=== PATIENT | female | born 1980 | race African-American/Black ===

== ENCOUNTER 2016-06-12 08:09 | Day surgery (SDC) | payer MEDICARE, OTHER ==
[~2016-06-12] VITALS: Ht 154.9 cm; Wt 73.0 kg
[~2016-06-12 08:09] MED LIST: CATAPRES0.2 MG PO; CELEXA10 MG PO; FUROSEMIDE40 MG PO; HYDROCODON-ACE1 EAC7 PO; LOTENSIN20 MG PO; METOPROLOL TART50 MG PO; NORMODYNE / TR300 MG PO; NORVASC5 MG PO
[2016-06-12 09:22] LABS: BASOPHILS 0.2 % (0.0-2.0); EOSINOPHILS 1.8 % (0-7); HEMATOCRIT 33.7 % (36.0-48.0); HEMOGLOBIN 11.1 g/dL (12-16); IMMATURE GRANULOCYTES 0.2 % (0-5); LYMPHOCYTES 28.7 % (15-50); MCH 29.8 pg (26.0-34.0); MCHC 32.9 g/dL (31.0-37.0); MCV 90.3 fL (80.0-100.0); MONOCYTES 7.2 % (2-11); NEUTROPHILS 61.9 % (40-80); RBC 3.73 10x6/uL (4.00-5.40); RDW 13.1 % (11.5-14.5); WBC 5.4 10x3/uL (4.8-10.8)
[2016-06-12 09:29] LABS: PLATELET COUNT 193 10x3/uL (130-400)
[2016-06-12 09:42] LABS: ANION GAP 13.1 mmol/L (8-16); CALCIUM 8.1 mg/dL (8.5-10.1); CREATININE - SERUM 6.3 mg/dL (0.6-1.3); POTASSIUM - SERUM 4.1 mmol/L (3.5-5.1)
[2016-06-12 10:09] LABS: APTT 28.5 SECONDS (22.8-39.4); INR 0.99 (0.85-1.17); PROTIME 12.9 SECONDS (11.6-15.0)
[2016-06-12 10:59] VITALS: BP 117/74; Ht 154.9 cm; Wt 73.0 kg
--- NOTE | 2016-06-12 15:32 | NUR ---
DR BLANCO STATED "DO NOT SEND PD CATH FOR PATHOLOGY OR CULTURES, ANGELICLEY.
[2016-06-12] MEDS ORDERED: HYDROCODON-ACE1 EAC7 PO (16:19)
--- NOTE | 2016-06-12 17:33 | NUR ---
VOMTING CLEAR LIG, STATED FELT BETTER
--- NOTE | 2016-06-12 17:33 | NUR ---
1600 IV DC WITH CATHER TIP INTACT
--- NOTE | 2016-06-12 17:34 | NUR ---
STATED SHE NEED TO REST , THAT SHE WOULD TRY TO GET UP IN A FEW MINUTES
--- NOTE | 2016-06-16 14:04 | OP ---
PATIENT NAME: ELI GRANGER MEDICAL RECORD: [id number] :78 LOCATION:[facility] ADMISSION DATE: SURGEON: EDUARD BLANCO MD DATE OF OPERATION: 06/12/2016 PREOPERATIVE DIAGNOSES: Tender incarcerated periumbilical hernia and end-stage renal disease with a peritoneal dialysis catheter in place, which the patient finds inconvenience and wants removed. She is presently dialyzing with an arteriovenous fistula. POSTOPERATIVE DIAGNOSES: End-stage renal disease with a peritoneal dialysis catheter in place, which the patient finds inconvenience and wants removed. She is presently dialyzing with an arteriovenous fistula. The umbilical hernia proved not to be a hernia, but a cyst about 1 cm x 1 cm x 1 cm, a cyst filled with clear non-foul smelling fluid. The wall was whitish and there were no excrescences on the inside and outwardly, there was minimal surrounding inflammation and no evidence of any communication between the cyst and the peritoneal cavity or urachus. OPERATION PERFORMED: Removal of periumbilical mass followed by removal of peritoneal dialysis catheter. SURGEON: Eduard Blanco M.D. ANESTHESIA: General endotracheal per [employer]. REFERRING PHYSICIAN: Seth Spivey M.D. PREOPERATIVE NOTE: Ms. Granger is a young 35-year-old -[place] female with end-stage renal disease, who has dialyzed successfully with a peritoneal dialysis catheter, but finds it inconvenient and wants to have it removed. That catheter is in the left upper quadrant of her abdomen and I plan to remove that today. She also has a tender nodule just beneath the umbilicus thought to represent a hernia and she is to have that explored and repaired today as well. DESCRIPTION OF THE PROCEDURE: Under anesthesia in supine position, the patient was prepped and draped in a sterile manner. I first approached the periumbilical lesion making a transverse curved incision beneath the umbilicus and going down through the subcutaneous tissue to expose the lump, which I soon came to find was resting on top of the fascia, but appeared to have no connections with the fascia or the preperitoneal space. This was a cyst about 1 cm x 1 cm x 1 cm. It was easily dissected from the surrounding fatty tissues with electrocautery. I opened the lesion and found it contained clear fluid without odor. The inner surface of the cyst was whitish and smooth without excrescences. The entire cyst was then sent to pathology for histologic study. The wound was then irrigated with saline and infiltrated with 0.25% Marcaine with epinephrine and then closed with interrupted inverted 3-0 Vicryl and a running intracuticular 4-0 Monocryl and Dermabond glue. It was dressed with Maxorb Ag and Tegaderm to provide isolation of this wound from the potentially infected catheter tract. I then placed the catheter on some tension and made an oblique incision from the exit site directed upwards towards the xiphoid. This incision was actually only about an inch and a half in total length or less actually. The incision was carried down to the catheter with electrocautery and first, the more superficial and lastly, the deeper Dacron felt cuff, which was embedded in the rectus sheath was removed. The entire catheter was then taken OPERATIVE REPORT [id number] ELI GRANGER out and discarded. It was not sent for any type of pathology or other documentation. The fascial defect was closed with 2 interrupted [id number] 0 Vicryl sutures. The wound was irrigated and infiltrated with Marcaine and closed with interrupted inverted 3-0 Vicryl and a few widely spaced interrupted simple 3-0 Vicryl skin sutures. That incision was dressed with a piece of Maxorb Ag covered by 4 x 4 and then a Medipore dressing. This incision was dressed in this manner to promote any drainage, which might accumulate. The patient was then awakened and extubated and taken to the recovery room in stable condition. Blood loss during the procedure was trivial and was unreplaced and all sponges, instruments, and needles were accounted for. No drain was used and the surgical specimen consisted of the periumbilical cyst. PLAN: The patient will be discharged from the outpatient department today with a prescription for 15 Blanca 5/325 to take 1 p.o. q.4 hours p.r.n. pain and an appointment to return to see me in my office for her dressing change early next week. TRANSINT:[id number] Voice Confirmation ID: [id number] DOCUMENT ID: [id number] EDUARD BLANCO MD at 1404 CC: SETH SPIVEY MD [id number] DICTATION DATE: 06/12/16 1636 DIE TRIMMER: 06/13/16 0043 [facility] 06/12/16 [facility] [address] [place] [address]
== END 2016-06-12 18:15 | disposition home or self-care (01) ==
LOC: D.OPS 08:09
PROVIDERS: Anesthesiology
DX: Z49.02 Encounter for fitting and adjustment of peritoneal dialysis catheter (principal); L72.0 Epidermal cyst

== ENCOUNTER → 2016-12-21 13:31 | Outpatient (CLI) | payer MEDICARE, OTHER ==
[2016-06-12 10:59] VITALS: BMI 30.5
== END | disposition home or self-care (01) ==
LOC: D.ECHO 13:30
DX: R06.02 Shortness of breath (principal); R55 Syncope and collapse; I10 Essential (primary) hypertension

== ENCOUNTER 2017-10-29 09:08 | Day surgery (SDC) | payer MEDICARE ==
[~2017-10-29] VITALS: Ht 154.9 cm; Wt 73.5 kg
--- NOTE | ~2017-10-29 | OP ---
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 OPERATION PERFORMED: Open ANDERSON banding of AV fistula, right arm. SURGEON: Eduard Blanco MD ANESTHESIA: General per [facility]. PREOPERATIVE NOTE: Ms. Granger is a 37-year-old -[place] African female from [place], [place], on dialysis with a right brachiocephalic AV fistula, which she has had for about 2 years. It is quite a large fistula with aneurysmal deterioration and it continues to enlarge and the aneurysms expand. Recent angiography by Dr. Norton on 10/18/2017 demonstrated no areas of stenosis and she was actually referred for a flow restriction procedure. PROCEDURE IN DETAIL: Under general anesthesia in supine position, the patient's right arm was prepped and draped in a sterile manner. The fistula was accessed with micropuncture technique and ultrasound guidance, and a 6-Arabic sheath inserted at mid humeral level directed distally and a 0.035 Glidewire was passed across the arterial anastomosis and proximally and up the brachial artery. A glide catheter was passed over that and a selective brachial artery arteriogram performed, which revealed no evidence of embolism or thrombus within the brachial artery proximal or distal to the anastomosis nor evidence of occlusive disease of the distal vessels. I then placed a 4-mm angioplasty balloon in the JA segment, but did not inflate it. I made an incision just above the antecubital space parallel to the fistula and exposed and dissected circumferentially the fistula in the area of the balloon. Two 2-0 Prolene ties were placed around the fistula. The balloon was inflated to its nominal diameter of 4-mm and held inflated while the 2 Prolene ligatures were tied around the fistula over the balloon at about a 1 cm interval. This restricted flow precisely to 4-mm diameter to locations a cm apart. The balloon was deflated and contrast was then injected in the brachial artery anastomosis and flow was seen in the brachial artery distally as well as in the fistula. The fistula was less pulsatile and it was quite apparent that the flow had been diminished. It was my opinion that the flow rate was still adequate to maintain patency and provide satisfactory dialysis access. The catheters and guidewires were removed and hemostasis obtained at that puncture site with a 4-0 Prolene [id number] suture. The incision was approximated with interrupted 3-0 Vicryl and running intracuticular 4-0 Monocryl and Dermabond glue. The site was dressed with Maxorb Ag, Tegaderm, and Cavilon skin prep. Blood loss during the procedure was trivial and unreplaced. All sponges, instruments and needles were accounted for. No drain was used and no surgical specimen was submitted for histopathology. OPERATIVE REPORT [id number] ELI GRANGER The patient awakened from anesthetic was taken to the recovery room in stable condition. I will have her back to see me in my office in about 2 weeks. She will continue her same medications and routine dialysis schedule and activities and call me if there are any problems in the interim. She is given a prescription for [place] for postop pain. TRANSINT:[id number] Voice Confirmation ID: [id number] DOCUMENT ID: [id number] EDUARD BLANCO MD at 1747 CC: [id number] DICTATION DATE: 12/04/17 1015 ADJUNCT WRITING INSTRUCTOR: 12/04/17 1033 [facility] 10/29/17 [id number] [place] [address]
[2017-10-29 09:21] LABS: BASOPHILS 0.3 % (0-2); EOSINOPHILS 1.3 % (0-7); HEMATOCRIT 37.2 % (36.0-48.0); HEMOGLOBIN 12.5 g/dL (12-16); IMMATURE GRANULOCYTES 0.7 % (0-5); LYMPHOCYTES 26.5 % (15-50); MCH 31.9 pg (26.0-34.0); MCHC 33.6 g/dL (31.0-37.0); MCV 94.9 fL (80.0-100.0); MONOCYTES 9.4 % (2-11); NEUTROPHILS 61.8 % (40-80); PLATELET COUNT 157 10x3/uL (130-400); RBC 3.92 10x6/uL (4.00-5.40); RDW 13.4 % (11.5-14.5); WBC 7.7 10x3/uL (4.8-10.8)
[2017-10-29 09:30] LABS: ANION GAP 12.6 mmol/L (8-16); CARBON DIOXIDE 29.2 mmol/L (21.0-32.0); POTASSIUM - SERUM 3.8 mmol/L (3.5-5.1)
[2017-10-29 09:36] LABS: INR 0.92 (0.85-1.17)
[2017-10-29 10:27] LABS: HCG SERUM NEGATIVE (NEGATIVE)
[2017-10-29 10:43] VITALS: BP 181/101; Ht 154.9 cm; Wt 73.5 kg
[2017-10-29] MEDS ORDERED: ULTRAM50 MG PO (13:29)
== END 2017-10-29 16:15 | disposition home or self-care (01) ==
LOC: D.OPS 09:08
PROVIDERS: Anesthesiology; Surgery
DX: T82.898A Other specified complication of vascular prosthetic devices, implants and grafts, initial encounter (principal); N18.6 End stage renal disease; Z99.2 Dependence on renal dialysis; Z01.812 Encounter for preprocedural laboratory examination

== ENCOUNTER 2018-02-26 13:43 | Inpatient (IN) | payer MEDICARE ==
[~2018-02-26] VITALS: Ht 154.9 cm; Wt 70.0 kg
[~2018-02-26 13:43] MED LIST changes: +MONODOX100 MG PO; +ULTRAM50 MG PO
[2018-02-26 14:27] VITALS: BP 168/91; Ht 154.9 cm; Wt 70.0 kg
[2018-02-26 16:21] LABS: BASOPHILS 0.4 % (0-2); EOSINOPHILS 3.3 % (0-7); HEMATOCRIT 26.4 % (36.0-48.0); HEMOGLOBIN 8.6 g/dL (12-16); IMMATURE GRANULOCYTES 0.8 % (0-5); LYMPHOCYTES 18.9 % (15-50); MCH 30.6 pg (26.0-34.0); MCHC 32.6 g/dL (31.0-37.0); MONOCYTES 10.6 % (2-11); PLATELET COUNT 150 10x3/uL (130-400); RBC 2.81 10x6/uL (4.00-5.40); RDW 13.7 % (11.5-14.5); WBC 7.6 10x3/uL (4.8-10.8)
[2018-02-26 16:27] VITALS: BP 144/88
[2018-02-26 16:39] LABS: ALBUMIN 3.1 g/dL (3.4-5.0); ANION GAP 9.6 mmol/L (8-16); BILIRUBIN - TOTAL 0.49 mg/dL (0.2-1.3); CALCIUM 8.4 mg/dL (8.5-10.1); CARBON DIOXIDE 32.1 mmol/L (21.0-32.0); CREATININE - SERUM 4.5 mg/dL (0.6-1.3); POTASSIUM - SERUM 3.7 mmol/L (3.5-5.1)
[2018-02-26 21:08] VITALS: BP 153/91
[2018-02-27 05:03] VITALS: BP 160/84
[2018-02-27 05:37] LABS: BASOPHILS 0.3 % (0-2); EOSINOPHILS 3.6 % (0-7); HEMATOCRIT 25.3 % (36.0-48.0); HEMOGLOBIN 8.3 g/dL (12-16); IMMATURE GRANULOCYTES 0.7 % (0-5); LYMPHOCYTES 27.6 % (15-50); MCHC 32.8 g/dL (31.0-37.0); MCV 94.4 fL (80.0-100.0); MEAN PLATELET VOLUME 9.7 fL (7.4-10.4); MONOCYTES 7.2 % (2-11); NEUTROPHILS 60.6 % (40-80); PLATELET COUNT 138 10x3/uL (130-400); RBC 2.68 10x6/uL (4.00-5.40)
[2018-02-27 05:53] LABS: APTT 25.1 SECONDS (22.8-39.4); INR 1.08 (0.85-1.17); PROTIME 13.5 SECONDS (11.6-15.0)
[2018-02-27 06:10] LABS: ALBUMIN 2.8 g/dL (3.4-5.0); ANION GAP 13.8 mmol/L (8-16); BILIRUBIN - TOTAL 0.48 mg/dL (0.2-1.3); CALCIUM 8.3 mg/dL (8.5-10.1); CARBON DIOXIDE 25.1 mmol/L (21.0-32.0); POTASSIUM - SERUM 3.9 mmol/L (3.5-5.1); PROTEIN - SERUM 6.4 g/dL (6.4-8.2)
[2018-02-27 06:11] LABS: CREATININE - SERUM 6.4 mg/dL (0.6-1.3)
[2018-02-27 08:43] VITALS: BP 134/87
[2018-02-27 12:38] VITALS: BP 133/81
[2018-02-27] MEDS ORDERED: PEPCID40 MG PO (12:50)
== END 2018-02-27 16:00 | disposition home or self-care (01) | DRG 377 ==
LOC: D.MS 13:43
PROVIDERS: Family Medicine; Internal Medicine Gastroenterology
PROC: 0DB68ZX Excision of Stomach, Via Natural or Artificial Opening Endoscopic, Diagnostic (ICD-10-PCS; principal; 2018-02-27 07:27)
DX: K29.01 Acute gastritis with bleeding (principal); N18.6 End stage renal disease; I12.0 Hypertensive chronic kidney disease with stage 5 chronic kidney disease or end stage renal disease; Z99.2 Dependence on renal dialysis; D64.9 Anemia, unspecified

== ENCOUNTER 2018-03-22 18:36 | Observation (INO) | payer MEDICARE ==
[~2018-03-22] VITALS: Ht 154.9 cm; Wt 71.4 kg
--- NOTE | ~2018-03-22 | MORECARE ---
CASE MANAGEMENT DISCHARGE SUMMARY PATIENT: ELI MARIEE UNIT: [id number] ADM DATE: 03/22/18 AGE: 37 : 78 SEX: F ROOM/BED: D.2104 AUTHOR: BECCA TOLENTINO PHYSICIAN: REFERRING PHYSICIAN: NATHALIA MCMAHON MD DATE OF SERVICE: 03/24/18 Discharge Plan Patient Name: ELI MARIEE Facility: [facility] : 1980 Planned Disposition: Home Anticipated Discharge Date: 03/24/18 Discharge Date: 03/24/2018 Expected LOS: 2 Initial Reviewer: [email or web address] Initial Review Date: 03/24/2018 Generated: 03/24/18 6:28 pm Coverage Notice Reviewer: [email or web address] Minal Rubalcava Notice Issued Date-Time: 03/23/2018 10:50 Notice Type: Medicare Outpatient Observation Notice Notice Delivered To: Patient Relationship to Patient: Self Carrier Driver Name: Delivery Method: HAND - Hand Delivered Hiral Days: Prior Verbal Notification: Recipient Understood Notice: Yes Recipient Signature: Yes Med Rec Note Co-signed by Attending: Coverage Notice Comment: Patient Name: ELI MARIEE Page [phone] at 1728 All edits/amendments must be made on the electronic document DICTATION DATE: 03/24/181726 MANAGER ANALYSIS: BRENT 03/24/181726 RPT#: [id number] DC DATE:03/24/18 STATUS: DIS IN [address] [place] [address] END OF REPORT
[~2018-03-22 18:36] MED LIST changes: +PEPCID40 MG PO
[2018-03-22 20:45] LABS: BASOPHILS 0.4 % (0-2); EOSINOPHILS 3.4 % (0-7); HEMATOCRIT 33.4 % (36.0-48.0); HEMOGLOBIN 10.8 g/dL (12-16); IMMATURE GRANULOCYTES 0.7 % (0-5); LYMPHOCYTES 15.6 % (15-50); MCH 31.5 pg (26.0-34.0); MCHC 32.3 g/dL (31.0-37.0); MCV 97.4 fL (80.0-100.0); MEAN PLATELET VOLUME 11.2 fL (7.4-10.4); MONOCYTES 8.9 % (2-11); RBC 3.43 10x6/uL (4.00-5.40); WBC 8.3 10x3/uL (4.8-10.8)
[2018-03-22 20:54] LABS: APTT 26.5 SECONDS (22.8-39.4); INR 1.09 (0.85-1.17); PLATELET COUNT 192 10x3/uL (130-400); PROTIME 13.6 SECONDS (11.6-15.0)
[2018-03-22 20:58] LABS: ANION GAP 15.4 mmol/L (8-16); BILIRUBIN - TOTAL 0.64 mg/dL (0.2-1.3); CALCIUM 8.9 mg/dL (8.5-10.1); CARBON DIOXIDE 23.5 mmol/L (21.0-32.0); POTASSIUM - SERUM 3.9 mmol/L (3.5-5.1); PROTEIN - SERUM 7.2 g/dL (6.4-8.2)
[2018-03-22 21:25] LABS: APPEARANCE CLEAR (CLEAR); COLOR STRAW (YELLOW)
[2018-03-22 21:26] LABS: BILIRUBIN NEGATIVE (NEGATIVE); GLUCOSE 250 mg/dL (NEGATIVE); KETONE NEGATIVE (NEGATIVE); NITRITE NEGATIVE (NEGATIVE); PROTEIN NEGATIVE (NEGATIVE); SPECIFIC GRAVITY 1.005 (1.005-1.020); UROBILINOGEN NORMAL (NORMAL)
[2018-03-22 21:39] VITALS: BP 169/103
[2018-03-22 21:49] VITALS: BP 169/103
[2018-03-22 23:30] VITALS: BP 162/91
[2018-03-23 00:30] VITALS: BP 167/90; BMI 25.9
[2018-03-23 04:05] VITALS: BP 153/97
[2018-03-23 09:51] VITALS: BP 144/100
[2018-03-23 13:54] VITALS: Ht 154.9 cm; Wt 71.4 kg
[2018-03-23 14:12] VITALS: BP 145/91
[2018-03-23 19:00] VITALS: BP 145/90
[2018-03-24 00:44] VITALS: BP 140/95
[2018-03-24 04:34] VITALS: BP 135/79
[2018-03-24 05:29] LABS: BASOPHILS 0.6 % (0-2); EOSINOPHILS 4.1 % (0-7); HEMATOCRIT 32.1 % (36.0-48.0); HEMOGLOBIN 10.2 g/dL (12-16); IMMATURE GRANULOCYTES 0.4 % (0-5); LYMPHOCYTES 27.3 % (15-50); MCHC 31.8 g/dL (31.0-37.0); MCV 97.6 fL (80.0-100.0); MEAN PLATELET VOLUME 11.2 fL (7.4-10.4); MONOCYTES 10.1 % (2-11); NEUTROPHILS 57.5 % (40-80); PLATELET COUNT 214 10x3/uL (130-400); RBC 3.29 10x6/uL (4.00-5.40); RDW 18.6 % (11.5-14.5); WBC 6.9 10x3/uL (4.8-10.8)
[2018-03-24 05:48] LABS: CALCIUM 8.8 mg/dL (8.5-10.1)
[2018-03-24 05:54] LABS: CREATININE - SERUM 10.3 mg/dL (0.6-1.3)
[2018-03-24 08:48] VITALS: BP 138/91
[2018-03-24 13:08] VITALS: BP 114/76
== END 2018-03-24 14:55 | disposition home or self-care (01) ==
LOC: D.ER 18:36 → D.EDHOLD 21:54 → OBSVTIME 21:54 → D.M2 21:54
PROVIDERS: Family Medicine; Internal Medicine Nephrology
DX: T82.42XA Displacement of vascular dialysis catheter, initial encounter (principal); Y83.8 Other surgical procedures as the cause of abnormal reaction of the patient, or of later complication, without mention of misadventure at the time of the procedure; I12.0 Hypertensive chronic kidney disease with stage 5 chronic kidney disease or end stage renal disease; N18.6 End stage renal disease; Z99.2 Dependence on renal dialysis; D64.9 Anemia, unspecified